=== PATIENT | female | born 1985 | race Caucasian/White ===

== ENCOUNTER 2020-02-15 11:03 | Emergency (ER) | payer SELFPAY ==
--- NOTE | 2020-02-15 11:30 | ED.GENADULT ---
HPI - General Adult General Chief complaint: Abdominal Pain Stated complaint: pain L ovary and a bump History of Present Illness HPI narrative: This is a 34-year-old female who presents with a red swollen area on the left genital area that is warm tender non fluctuant with no drainage approximately 3cm in diameter with swollen tender left inguinal lymph node that is tender to palpation with no fever chills no nausea vomiting no abdominal pain no flank pain no dysuria. Onset (ago): day(s) Location: genitals Radiation: non-radiation Severity: moderate Severity scale (1-10): 8 Quality: aching Pain Consistency: constant Relieving factors: none Exacerbating factors: movement Associated symptoms: denies other symptoms Related Data Home Medications Medication Instructions Recorded Confirmed citalopram 40 mg PO DAILY 02/15/20 02/15/20 Allergies Allergy/AdvReac Type Severity Reaction Status Date / Time No Known Allergies Allergy Verified 02/15/20 11:34 Review of Systems Review of Systems: All systems reviewed & are unremarkable except as noted in HPI and below PMFSH Past Medical History Medical History Patient denies medical problems Exam Const: General: no acute distress and alert Orientation/consciousness: patient oriented x3 HENMT: Head: normal to inspection Eyes: Conjunctivae: conjunctivae normal Neck: Neck: normal visual inspection and lymphadenopathy ( Left tender swollen inguinal lymph node) Chest: Chest palpation & inspection: normal inspection of the chest Resp: Effort & Inspection: normal respiratory effort Cardio: Rate: regular rate Rhythm: regular rhythm GI: GI Palp: Yes Soft to palpation Skin: Wounds: wounds noted ( 3 cm nonfluctuant warm red area left genital area ) Neuro: General: patient oriented x3, moves all extremities, no meningeal signs and no focal motor deficits Psych: Appearance: grossly normal Mental Status: mental status grossly normal Course Course Emergency Course: reassured patient this is a.m. abscess and will administer pain medication with Toradol and a dose of ceftriaxone. Critical Care Time Critical Care Time Critical Care Time: No Discharge Plan Discharge Clinical Impression: Abscess of skin or subcutaneous tissue Qualifiers: Site of cutaneous abscess: unspecified site Qualified Code(s): L02.91 - Cutaneous abscess, unspecified Cellulitis Qualifiers: Site of cellulitis: unspecified site Qualified Code(s): L03.90 - Cellulitis, unspecified Patient Disposition: Home, Self-Care Condition: Stable Instructions: Antibiotic Form, Cellulitis (ED), Abscess (ED) Additional Instructions: Take medicine as prescribed and follow-up with primary care physician if symptoms persist or worsen. Prescriptions: New amoxicillin-pot clavulanate [Augmentin] 875-125 mg tablet 1 tablet PO Q12H Qty: 20 RF: 0 naproxen 500 mg tablet 500 mg PO BID Qty: 14 RF: 0 No Action citalopram 40 mg Tablet 40 mg PO DAILY RF: 0 Follow-up/Referrals: UNKNOWN,DOCTOR [Primary Care Provider] - Time of Disposition: 11:37
[2020-02-15 11:42] VITALS: BP 126/78; PULSE 89; RESP 16; TEMP 36.9; O2SAT 97
[2020-02-15] MEDS: cefTRIAXone 1 GM VIAL IM (11:55)
[2020-02-15] MEDS: KETOROLAC (*BKC) 60 MG/2 ML VIAL IM (11:56)
== END 2020-02-15 12:16 | disposition home or self-care (01) ==
PROVIDERS: Emergency Provider Emergency Medicine
DX: L02.91 Cutaneous abscess, unspecified (principal); L03.90 Cellulitis, unspecified
CPT/HCPCS: 96372; 99283; 99284; J0696; J1885

== ENCOUNTER 2020-03-26 15:40 | Outpatient (CLI) | payer OTHER, SELFPAY ==
[2020-03-28 00:19] LABS: SARS-CoV-2 RNA PCR Negative
== END 2020-03-26 15:41 | disposition home or self-care (01) ==
LOC: CHSLAB 15:42
PROVIDERS: PCP Family Medicine; Visit Provider Family Medicine
DX: Z20.828 Contact with and (suspected) exposure to other viral communicable diseases (principal)
CPT/HCPCS: 87635; C9803; U0003

== ENCOUNTER 2022-01-12 22:51 | Emergency (ER) | payer BC, SELFPAY ==
[2022-01-12 23:04] VITALS: BP 137/80; PULSE 94; RESP 20; TEMP 36.6; O2SAT 98
--- NOTE | 2022-01-12 23:11 | ED.EXTPRO ---
HPI - Extremity Problem General Chief complaint: Unspecified Stated complaint: infection in toe nails and finger nails Time Seen by Provider: 01/12/22 23:11 Source: patient and RN notes reviewed Mode of arrival: ambulatory Limitations: no limitations History of Present Illness HPI Narrative: patient states she had a manicure and pedicure 1 week ago. The day after started noticing some pain in her cuticles and now she is having some redness and swelling. She denies any fever chills. MD Complaint: extremity pain and extremity swelling Onset (ago): day(s) (6) Pain Consistency: constant Location: left, right, upper extremity and lower extremity Quality: burning, aching, dull and constant Radiation: none Relieving factors: nothing Exacerbating factors: palpation Associated symptoms: denies other symptoms Related Data Allergies Allergy/AdvReac Type Severity Reaction Status Date / Time No Known Allergies Allergy Verified 06/20/21 09:04 Review of Systems Review of Systems: All systems reviewed & are unremarkable except as noted in HPI and below PMFSH Past Medical History Medical History Patient denies medical problems Social History Social History Smoking status: Never smoker Tobacco type: cigarettes Alcohol intake: current Alcohol use details: socially Substance use: never Gender identity (if verbalized by the patient): Female Exam Const: General: healthy appearing, no acute distress and alert Nutritional Appearance: well nourished Orientation/consciousness: patient oriented x3 Other: Female nurse in room during examination. HENMT: Head: normal to inspection Ears: external ears normal Face and sinus: normal facial exam Mouth: Yes moist mucous membranes Eyes: Conjunctivae: conjunctivae normal Pupils: Equal, round and reactive pupils present EOM: EOMs intact bilaterally Neck: Neck: normal visual inspection Resp: Effort & Inspection: normal respiratory effort Auscultation: clear to auscultation bilaterally Cardio: Rate: regular rate Rhythm: regular rhythm GI: GI Palp: Yes Soft to palpation and No Tenderness to palpation present (GI) Auscultation: normal bowel sounds Back/Spine/Pelvis: Cervical Spine: cervical ROM normal Thoracic/Lumbar Spine: thoraco-lumbar ROM normal Skin: General skin exam: normal color Other: there is erythema and swelling at the base at the cuticles several of the fingers on both hands and on the feet. Tender with palpation. No distinct abscesses could be appreciated for I and D. Findings consistent with multiple paronychia Neuro: General: patient oriented x3, moves all extremities, no focal motor deficits and CN's II-XI intact bilaterally Speech: normal speech Gait exam (Neuro): Normal gait present Extrem: General: normal to inspection and no clubbing, cyanosis or edema Psych: Appearance: grossly normal and well kempt Mental Status: mental status grossly normal Affect: normal affect Attitude: cooperative Thought content: Yes Normal thought content present Course Vital Signs Vital signs: Vital Signs Temperature 36.6 C 01/12/22 23:04 Pulse Rate 94 01/12/22 23:04 Respiratory Rate 20 01/12/22 23:04 Blood Pressure 137/80 01/12/22 23:04 Pulse Oximetry 98 01/12/22 23:04 Temperature 36.6 C 01/12/22 23:04 Pulse Rate 87 01/12/22 23:31 Respiratory Rate 18 01/12/22 23:31 Blood Pressure 130/78 01/12/22 23:31 Pulse Oximetry 99 01/12/22 23:31 Discharge Plan Discharge Clinical Impression: Paronychia Patient Disposition: Home, Self-Care Condition: Stable Instructions: Antibiotic Form, Paronychia (ED) Prescriptions: New cephalexin 500 mg capsule 500 mg PO Q8H 10 Days Qty: 30 RF: 0 No Action aripiprazole [Abilify] 2 mg tablet 1 mg PO QHS Qty: 45 RF: 0 citalopram 40 mg tablet 40 mg PO DA
[2022-01-12] MEDS: CEPHALEXIN 500 MG CAPSULE PO (23:25)
[2022-01-12 23:31] VITALS: BP 130/78; PULSE 87; RESP 18; O2SAT 99
== END 2022-01-12 23:32 | disposition home or self-care (01) ==
PROVIDERS: Emergency Provider Emergency Medicine; PCP Nurse Practitioner Family
DX: L03.012 Cellulitis of left finger (principal); L03.011 Cellulitis of right finger; L03.032 Cellulitis of left toe; L03.031 Cellulitis of right toe
CPT/HCPCS: 99283; A9270

== ENCOUNTER 2022-04-07 18:08 | Emergency (ER) | payer BC, SELFPAY ==
[2022-04-07 18:12] VITALS: BP 128/79; PULSE 97; RESP 16; O2SAT 97
--- NOTE | 2022-04-07 18:26 | ED.DENTAL ---
HPI - Dental/Oral General Chief complaint: Dental/Oral Stated complaint: possible infected tooth Time Seen by Provider: 04/07/22 18:26 Source: patient Mode of arrival: ambulatory History of Present Illness HPI Narrative: 37-year-old female presents to the ER with -- right lower jaw pain. -- Extensive caries with involvement of the molars Complaint: tooth pain Onset (ago): day(s) Duration: intermittent Relieving factors: nothing Exacerbating factors: cold and heat Context: history of dental caries Treatment prior to arrival: none Related Data Home Medications Medication Instructions Recorded Confirmed aripiprazole 2 mg tablet (Abilify) 2 mg PO QHS 04/07/22 04/07/22 Allergies Allergy/AdvReac Type Severity Reaction Status Date / Time No Known Allergies Allergy Verified 04/07/22 18:18 Review of Systems Review of Systems: All systems reviewed & are unremarkable except as noted in HPI and below Constitutional: Constitutional: Reports as per HPI and Reports no additional constitutional complaints Eyes: Eyes: Reports as per HPI and Reports no additional eye complaints ENT: Reports system reviewed and no additional complaints, except as documented and Reports as per HPI Comments: all her molars in upper and lower on both sides are carious/missing Cardiovascular: Cardiovascular: Reports as per HPI and Reports no additional cardiovascular complaints Respiratory: Respiratory: Reports as per HPI and Reports no additional respiratory complaints Gastrointestinal: Gastrointestinal: Reports as per HPI and Reports no additional gastrointestinal complaints Genitourinary: Genitourinary: Reports no additional female genitourinary complaints Comments: status post BTL Musculoskeletal: Musculoskeletal: Reports no additional musculoskeletal complaints Integumentary/Breasts: Skin/Breast: Reports system reviewed and no additional complaints, except as docu and Reports as per HPI Neurologic: Reports system reviewed and no additional complaints, except as documented and Reports as per HPI Psychiatric: Psychiatric: Reports no additional psychiatric complaints and Reports as per HPI Endocrine: Endocrine: Reports no additional endocrine complaints and Reports as per HPI Hematologic/Lymphatic: Hematologic/Lymphatic: Reports no additional hematologic/lymphatic complaints and Reports as per HPI Allergic/Immunologic: Allergic/Immunologic: Reports no additional allergic/immunologic complaints and Reports as per HPI PMFSH Past Medical History Medical History Patient denies medical problems Social History Social History Smoking status: Never smoker Tobacco type: cigarettes Alcohol intake: current Alcohol use details: socially Substance use: never Gender identity (if verbalized by the patient): Female Course Course Emergency Course: dental caries dental pain Vital Signs Vital signs: Vital Signs Pulse Rate 97 04/07/22 18:12 Respiratory Rate 16 04/07/22 18:12 Blood Pressure 128/79 04/07/22 18:12 Pulse Oximetry 97 04/07/22 18:12 Oxygen Delivery Room Air 04/07/22 18:12 Pulse Rate 97 04/07/22 18:12 Respiratory Rate 16 04/07/22 18:12 Blood Pressure 128/79 04/07/22 18:12 Pulse Oximetry 97 04/07/22 18:12 Oxygen Delivery Room Air 04/07/22 18:12 MDM - Dental/Oral MDM Narrative Medical decision making narrative: dental caries-- will start clindamycin dental pain Differential Diagnosis Differential diagnosis: Likely dental caries, toothache, dental abscess and fracture of tooth Discharge Plan Discharge Clinical Impression: Pain, dental, Dental caries Patient Disposition: Home, Self-Care Condition: Stable Instructions: Antibiotic Form, Toothache (ED) Additional Instructions: follow-up with dentist Prescriptions: New clindamy
[2022-04-07] MEDS: CLINDAMYCIN HCL 150 MG CAP 300 MG PO (18:44)
[2022-04-07] MEDS: HYDROcodone/acetaminophen (*CRX) 5-325 MG TABLET 1 TAB PO (18:45)
== END 2022-04-07 18:50 | disposition home or self-care (01) ==
PROVIDERS: Emergency Provider Internal Medicine Critical Care Medicine; PCP Family Medicine
DX: K08.89 Other specified disorders of teeth and supporting structures (principal); K02.9 Dental caries, unspecified
CPT/HCPCS: 99283; A9270

== ENCOUNTER 2022-05-27 23:57 | Emergency (ER) | payer BC, SELFPAY ==
[2022-05-28 00:04] VITALS: BP 130/103; PULSE 90; RESP 18; TEMP 36.7; O2SAT 99
--- NOTE | 2022-05-28 00:10 | ED.ALLEREA ---
HPI - Allergic Reaction General Chief complaint: Allergic Reaction Stated complaint: Allergic Reaction Time Seen by Provider: 05/27/22 23:59 Source: patient and RN notes reviewed Mode of arrival: ambulatory Limitations: no limitations History of Present Illness complaint: allergic reaction (fingers of both hands mildly red and itchy after exposure to cleaning chemicals) Onset (ago): hour(s) (10) Exposure: cleaning product exposure Symptoms: rash (all fingers.) and itching Severity: mild Treatment prior to arrival: none Previous Allergic Reaction History: other (similar fingers redness txed with antibiotics 3 weeks ago.) Related Data Home Medications Medication Instructions Recorded Confirmed aripiprazole 2 mg tablet (Abilify) 2 mg PO QHS 04/07/22 05/28/22 Allergies Allergy/AdvReac Type Severity Reaction Status Date / Time No Known Allergies Allergy Verified 05/28/22 00:03 Review of Systems Review of Systems: All systems reviewed & are unremarkable except as noted in HPI and below Constitutional: Constitutional: Reports no additional constitutional complaints Eyes: Eyes: Reports no additional eye complaints ENT: Reports system reviewed and no additional complaints, except as documented Cardiovascular: Cardiovascular: Reports no additional cardiovascular complaints Respiratory: Respiratory: Reports no additional respiratory complaints Gastrointestinal: Gastrointestinal: Reports no additional gastrointestinal complaints Genitourinary: Genitourinary: Reports no additional female genitourinary complaints Musculoskeletal: Musculoskeletal: Reports no additional musculoskeletal complaints Integumentary/Breasts: Skin/Breast: Reports system reviewed and no additional complaints, except as docu Neurologic: Reports system reviewed and no additional complaints, except as documented Psychiatric: Psychiatric: Reports no additional psychiatric complaints Endocrine: Endocrine: Reports no additional endocrine complaints Hematologic/Lymphatic: Hematologic/Lymphatic: Reports no additional hematologic/lymphatic complaints Allergic/Immunologic: Comments: fingers redness PMFSH Past Medical History Medical History Allergic reaction to chemical substance Patient denies medical problems Social History Social History Smoking status: Never smoker Tobacco type: cigarettes Alcohol intake: current Alcohol use details: socially Substance use: never Gender identity (if verbalized by the patient): Female Exam Const: General: healthy appearing and no acute distress Nutritional Appearance: well nourished Orientation/consciousness: patient oriented x3 Limitations: no limitations HENMT: Head: normal to inspection Ears: external ears normal, TM's normal bilaterally and EAC's normal General nose exam: Normal external nose present and Normal nares present Face and sinus: normal facial exam and sinuses nontender Mouth: Yes Normal oral and palatal mucosa present and Yes moist mucous membranes Teeth and gingiva: dentition normal Throat: posterior oropharynx normal Eyes: Conjunctivae: conjunctivae normal Pupils: Equal, round and reactive pupils present EOM: EOMs intact bilaterally Neck: Neck: normal visual inspection, no lymphadenopathy and no meningeal signs Chest: Chest palpation & inspection: normal inspection of the chest Resp: Effort & Inspection: normal respiratory effort Auscultation: clear to auscultation bilaterally Cardio: Rate: regular rate Rhythm: regular rhythm GI: GI Palp: Yes Soft to palpation and No Tenderness to palpation present (GI) Auscultation: normal bowel sounds : General: Yes bladder normal to palpation and Yes no CVA tenderness Bimanual exam- vagina & uterus: bladder normal to palpation Back/Spine/Pelvis: Back: no CVA tenderness Skin: General skin exam: normal
[2022-05-28] MEDS: diphenhydrAMINE HCl CAP 25 MG CAPSULE 50 MG PO (00:21)
[2022-05-28] MEDS: methylPREDNISolone SOD SUCC 125 MG VIAL IM (00:23)
[2022-05-28 00:24] VITALS: BP 103/90
== END 2022-05-28 00:38 | disposition home or self-care (01) ==
PROVIDERS: Emergency Provider Emergency Medicine; PCP Family Medicine
DX: L25.9 Unspecified contact dermatitis, unspecified cause (principal)
CPT/HCPCS: 96372; 99283; A9270; J2930

== ENCOUNTER 2022-06-04 11:05 | Emergency (ER) | payer BC, SELFPAY ==
[2022-06-04 11:10] VITALS: BP 165/90; PULSE 87; RESP 20; TEMP 35.9; O2SAT 97
--- NOTE | 2022-06-04 11:23 | ED.DENTAL ---
HPI - Dental/Oral General Chief complaint: Dental/Oral Stated complaint: DENTAL PAIN Time Seen by Provider: 06/04/22 11:15 Source: patient Mode of arrival: ambulatory Limitations: no limitations History of Present Illness HPI Narrative: this is a 37-year-old female with chronic tooth decay presents with dental pain with no fever chills no shortness of breath has tried [id number] medication with minimal relief does not have a dentist, is no nausea vomiting no shortness of breath. MD Complaint: tooth pain Teeth map: 1. Dental decay with surrounding gum inflammation Onset (ago): day(s) Duration: constant Severity: moderate Severity scale (1-10): 7 Relieving factors: NSAIDs Related Data Allergies Allergy/AdvReac Type Severity Reaction Status Date / Time No Known Allergies Allergy Verified 06/04/22 11:13 Review of Systems Review of Systems: All systems reviewed & are unremarkable except as noted in HPI and below PMFSH Past Medical History Medical History Allergic reaction to chemical substance Patient denies medical problems Social History Social History Smoking status: Never smoker Tobacco type: cigarettes Alcohol intake: current Alcohol use details: socially Substance use: never Gender identity (if verbalized by the patient): Female Exam Const: General: healthy appearing Nutritional Appearance: well nourished Orientation/consciousness: patient oriented x3 Limitations: no limitations HENMT: Head: normal to inspection General nose exam: Normal external nose present Face and sinus: normal facial exam Teeth and gingiva: abnormal tooth and associated gingiva Throat: posterior oropharynx normal Eyes: Conjunctivae: conjunctivae normal Pupils: Equal, round and reactive pupils present Chest: Chest palpation & inspection: normal inspection of the chest Resp: Effort & Inspection: normal respiratory effort Auscultation: clear to auscultation bilaterally Cardio: Rate: regular rate Rhythm: regular rhythm GI: Auscultation: normal bowel sounds Skin: General skin exam: normal color Rashes: no rashes Wounds: no wounds Neuro: General: patient oriented x3 Cranial nerves: Yes Nystagmus not present Extrem: General: normal to inspection Psych: Mental Status: mental status grossly normal Affect: normal affect Course Course Emergency Course: Patient declined a local injection, but some is okay with receiving Toradol IM and will send antibiotics to her pharmacy advised follow-up with dentist. Critical Care Time Critical Care Time Critical Care Time: No Discharge Plan Discharge Clinical Impression: Toothache, Dental abscess Patient Disposition: Home, Self-Care Condition: Stable Instructions: Antibiotic Form, Dental Abscess (ED), Toothache (ED) Prescriptions: New tramadol [Ultram] 50 mg tablet 50 mg PO Q6H PRN (Reason: pain) Qty: 20 0RF amoxicillin 500 mg tablet 500 mg PO TID 10 Days Qty: 30 0RF No Action citalopram 40 mg tablet 40 mg PO DAILY Qty: 90 0RF Follow-up/Referrals: Uri Roca MD [Primary Care Provider] - Stand Alone Forms: Work/School Release IP Time of Disposition: 11:28
[2022-06-04 11:24] VITALS: BP 165/97; PULSE 87; RESP 20; TEMP 35.9; O2SAT 100
[2022-06-04] MEDS: KETOROLAC (*BKC) 60 MG/2 ML VIAL IM (11:32)
== END 2022-06-04 11:39 | disposition home or self-care (01) ==
LOC: CHSED 11:28
PROVIDERS: Emergency Provider Emergency Medicine; PCP Family Medicine
DX: K08.89 Other specified disorders of teeth and supporting structures (principal); K04.7 Periapical abscess without sinus
CPT/HCPCS: 96372; 99283; J1885